=== PATIENT | female | born 1970 | race Caucasian/White ===

== ENCOUNTER 2020-09-29 23:31 | Emergency (ER) | payer OTHER ==
[~2020-09-29] VITALS: Ht 162.6 cm; Wt 65.8 kg
--- NOTE | 2020-09-29 23:38 | NUR ---
PT AAOX4. BIBWIFE C/O RT WRIST PAIN S/P FALL FROM SHOWER. DENIES LOC. CAUGHT HER WHOLE WEIGHT WHILE FALLING. PLACED IN BED 6 ON MONITOR AND PULSE OX. VSS.
[2020-09-30] MEDS: MORPHINE SULFATE INJ 2 MG/ML DISP.SYRIN IV ONE ×2 (00:30→00:54)
[2020-09-30] MEDS: ONDANSETRON HCL/PF 4 MG/2 ML VIAL IV ONE (00:30)
[2020-09-30] MEDS ORDERED: MORPHINE SULFATE INJ 4 MG/ML DISP.SYRIN ONE (00:32)
[2020-09-30] MEDS ORDERED: ONDANSETRON HCL/PF 4 MG/2 ML VIAL ONE (00:32)
[2020-09-30] MEDS ORDERED: MORPHINE SULFATE INJ 2 MG/ML DISP.SYRIN ONE (00:50)
[2020-09-30] MEDS ORDERED: HYDR-3980 PO (00:54)
--- NOTE | 2020-09-30 01:07 | NUR ---
PLACED IN SPLINT
--- NOTE | 2020-09-30 01:32 | NUR ---
[facility] CALLED FOR XRAY RESULT.
--- NOTE | 2020-09-30 02:43 | NUR ---
IV removed. Catheter intact and site benign. Pressure and 4x4 applied to site. No bleeding noted. Patient discharged to home in stable condition. Written and verbal after care instructions given. Patient verbalizes understanding of instruction and RX.
[2020-09-30 02:44] VITALS: BP 128/73
== END 2020-09-30 02:44 | disposition home or self-care (01) ==
LOC: ER 23:42
DX: S52.291A Other fracture of shaft of right ulna, initial encounter for closed fracture (principal); E03.9 Hypothyroidism, unspecified; Z88.0 Allergy status to penicillin; W01.0XXA Fall on same level from slipping, tripping and stumbling without subsequent striking against object, initial encounter; Y93.E1 Activity, personal bathing and showering; Y92.091 Bathroom in other non-institutional residence as the place of occurrence of the external cause; Y99.8 Other external cause status
CPT/HCPCS: 29125; 73110; 96374; 96375; 99284; J2270 ×2; J2405

== ENCOUNTER 2020-10-13 01:21 | Emergency (ER) | payer OTHER ==
[~2020-10-13] VITALS: Ht 162.6 cm; Wt 65.8 kg
[~2020-10-13 01:21] MED LIST: HYDR-3980 PO
[2020-10-13] MEDS ORDERED: HYDROMORPHONE 1 MG/1 ML DISP.SYRIN ONE ×2 (01:34→02:12)
--- NOTE | 2020-10-13 01:35 | NUR ---
VERBAL ORDER RECIEVED FOR 1MG DILAUDID IM XNOW FROM MD BELTRAN.
[2020-10-13] MEDS: HYDROMORPHONE 1 MG/1 ML DISP.SYRIN IM ONE ×2 (01:40→02:16)
== END 2020-10-13 02:31 | disposition home or self-care (01) ==
LOC: ER 01:27
DX: G89.18 Other acute postprocedural pain (principal); M79.632 Pain in left forearm; E03.9 Hypothyroidism, unspecified; Z88.0 Allergy status to penicillin
CPT/HCPCS: 29125; 96372 ×2; 99284; J1170 ×2